=== PATIENT | female | born 1985 | race Caucasian/White ===

== ENCOUNTER 2017-09-15 00:30 | Emergency (ER) | payer SELFPAY ==
[~2017-09-15] VITALS: Ht 162.6 cm; Wt 74.0 kg
[2017-09-15 00:35] VITALS: BP 118/76
--- NOTE | 2017-09-15 00:38 | NUR ---
URINE COLLECTED. PT RETURNED TO LOBBY
--- NOTE | 2017-09-15 00:50 | NUR ---
PT TAKEN TO BED 5
--- NOTE | 2017-09-15 01:03 | NUR ---
Dr. العراقي evaluating patient at bedside.
--- NOTE | 2017-09-15 01:10 | NUR ---
31Y/F PT C/O CONSTIPATION X4 DAYS, W/ SUPRA PUBIC TENDERNESS, AND NAUSEA AND VOMITING X1 DAY. ABD IS ROUND, SOFT, TENDER TO LOWER QUADRANTS/SUPRAPUBIC, ACTIVE BS X4. PT IS LAYING IN BED, CALM, HOLDING STOMACH, FAMILY AT BEDSIDE. PMH GASTRITIS
[2017-09-15] MEDS ORDERED: NACL 0.9% 1,000 ML IV ONE (01:11)
[2017-09-15] MEDS ORDERED: MORPHINE SULFATE 4 MG/ML SYR IVP ONE (01:15)
[2017-09-15] MEDS ORDERED: ONDANSETRON 4 MG/2 ML VIAL IVP ONE (01:15)
[2017-09-15 01:38] LABS: BASOPHILS % (AUTO) 0.4 % (0.0-2.0); EOSINOPHILS # (AUTO) 0.1 K/uL (0-0.4); EOSINOPHILS % (AUTO) 1.6 % (0.0-4.0); HEMATOCRIT 30.6 % (36-48); HEMOGLOBIN 9.7 g/dL (12.0-16.0); LYMPHOCYTES # (AUTO) 1.8 K/uL (2.5-16.5); MEAN CORPUSCULAR HEMOGLOBIN 23 pg (27-31); MEAN CORPUSCULAR HGB CONC 32 g/dL (33-37); MEAN CORPUSCULAR VOLUME 73.8 fL (80-94); MONOCYTES # (AUTO) 0.6 K/uL (0.8-1.0); MONOCYTES % (AUTO) 8.3 % (1.7-9.3); NEUTROPHILS # (AUTO) 5.2 K/uL (1.8-7.7); NEUTROPHILS % (AUTO) 66.7 % (42.2-75.2); PLATELET COUNT (AUTO) 191 K/uL (140-450); RED BLOOD CELL COUNT(AUTO) 4.15 MIL/uL (4.20-5.40); RED CELL DISTRIBUTION WIDTH 17.1 % (11.6-13.7); WHITE BLOOD COUNT (AUTO) 7.8 K/uL (4.8-10.8)
--- NOTE | 2017-09-15 01:38 | NUR ---
PT TAKEN TO CT
--- NOTE | 2017-09-15 01:56 | NUR ---
PT RETURN FROM CT
[2017-09-15 02:06] LABS: ANION GAP 12.1 (8-16); CARBON DIOXIDE 28.1 mmol/L (21-32); CREATININE 0.8 mg/dL (0.6-1.3); POTASSIUM 3.2 mmol/L (3.5-5.1)
[2017-09-15 02:12] LABS: ALBUMIN 3.6 g/dL (3.4-5.0); TOTAL BILIRUBIN 0.2 mg/dL (0.0-1.0)
[2017-09-15 02:25] LABS: APPEARANCE,URINE CLOUDY (CLEAR); BILIRUBIN,URINE NEGATIVE (NEGATIVE); BLOOD, URINE NEGATIVE (NEGATIVE); COLOR,URINE YELLOW (YELLOW); LEUKOCYTE ESTERASE ,URINE NEGATIVE (NEGATIVE); NITRITE, URINE NEGATIVE (NEGATIVE); PH,URINE 8.5 (5.0-9.0); UGLUCOSE NEGATIVE (NEGATIVE)
--- NOTE | 2017-09-15 02:25 | NUR ---
PT RESTING COMFORTABLY IN BED, PT REPORTS 1/10 ABD PAIN, DENIES NAUSEA. REPORTS HAVING LARGE LIQUID STOOL A FEW MOMENTS AGO. ALL NEEDS MET AT THIS TIME.
[2017-09-15 03:21] VITALS: BP 98/64
--- NOTE | 2017-09-15 03:21 | NUR ---
Patient discharged with v/s stable. Written and verbal after care instructions given and explained. Patient alert, oriented and verbalized understanding of instructions. Ambulatory with steady gait. All questions addressed prior to discharge. ID band removed. Patient advised to follow up with PMD. Rx of FLAGYL 500MG, BENTYL 20MG, ZOFRAN ODT 4MG given. Patient educated on indication of medication including possible reaction and side effects. Opportunity to ask questions provided and answered.
== END 2017-09-15 03:21 | disposition home or self-care (01) ==
LOC: MED 00:30
DX: R11.10 Vomiting, unspecified (principal); R19.7 Diarrhea, unspecified; R10.9 Unspecified abdominal pain
CPT/HCPCS: 36415; 74176; 80053; 81003; 81025; 83690; 85025; 96361; 96374; 96375; 99285; J2270; J2405

== ENCOUNTER 2018-06-29 20:05 | Emergency (ER) | payer SELFPAY ==
[~2018-06-29] VITALS: Ht 160 cm; Wt 74.8 kg
[2018-06-29 20:21] VITALS: BP 140/90
--- NOTE | 2018-06-29 20:24 | NUR ---
TO LOBBY A/W BED, AMB, NASAL SWAB DONE AND SENT TO LAB
--- NOTE | 2018-06-29 21:51 | NUR ---
32/F PRESENTS TO ED WITH FAMILY, C/O NONPRODUCTIVE COUGH, CONGESTION, X3-4 DAYS. REPORTS BODYACHES, INCLUDING IN BACK, LEGS, HEADACHE, AND PLEURITIC CHEST PAIN. REPORTS VOMITING X4 TODAY. DENIES FEVER. AOX4, GCS 15, RR EVEN AND UNLABORED. DENIES MED HX OR RX.
[2018-06-29 22:43] VITALS: BP 116/77
--- NOTE | 2018-06-29 22:43 | NUR ---
Patient discharged with v/s stable. Written and verbal after care instructions given and explained. Patient alert, oriented and verbalized understanding of instructions. Ambulatory with steady gait. All questions addressed prior to discharge. ID band removed. Patient advised to follow up with PMD. Rx of MOTRIN, PROMETHAZINE/DEXTROMETHORPHAN given. Patient educated on indication of medication including possible reaction and side effects. Opportunity to ask questions provided and answered.
== END 2018-06-29 22:43 | disposition home or self-care (01) ==
LOC: MED 20:05
DX: J06.9 Acute upper respiratory infection, unspecified (principal)
CPT/HCPCS: 71045; 87804; 99284

== ENCOUNTER 2023-07-27 16:01 | Emergency (ER) | payer OTHER ==
[~2023-07-27] VITALS: Ht 157.5 cm; Wt 73.5 kg
[2023-07-27 16:21] VITALS: BP 124/77; PULSE 71; RESP 18; TEMP 98.7; O2SAT 99
[2023-07-27 18:42] LABS: BASOPHILS % (AUTO) 0.5 % (0.0-2.0); EOSINOPHILS # (AUTO) 0.1 K/uL (0-0.4); EOSINOPHILS % (AUTO) 2.2 % (0.0-4.0); HEMATOCRIT 32.6 % (36-48); HEMOGLOBIN 10.9 g/dL (12.0-16.0); LYMPHOCYTES # (AUTO) 2.6 K/uL (2.5-16.5); LYMPHOCYTES % (AUTO) 41.6 % (20.5-51.1); MEAN CORPUSCULAR HEMOGLOBIN 27 pg (27-31); MEAN CORPUSCULAR HGB CONC 33 g/dL (33-37); MONOCYTES # (AUTO) 0.5 K/uL (0.8-1.0); MONOCYTES % (AUTO) 7.8 % (1.7-9.3); NEUTROPHILS # (AUTO) 2.9 K/uL (1.8-7.7); NEUTROPHILS % (AUTO) 47.9 % (42.2-75.2); PLATELET COUNT (AUTO) 218 K/uL (140-450); RED BLOOD CELL COUNT(AUTO) 4.02 MIL/uL (4.20-5.40); RED CELL DISTRIBUTION WIDTH 14.4 % (11.6-13.7); WHITE BLOOD COUNT (AUTO) 6.2 K/uL (4.8-10.8)
[2023-07-27 18:58] LABS: ANION GAP 13.8 (8-16); CALCIUM 8.8 mg/dL (8.5-10.1); CARBON DIOXIDE 27.1 mmol/L (21-32); CREATININE 0.6 mg/dL (0.6-1.3); POTASSIUM 3.9 mmol/L (3.5-5.1)
[2023-07-27 19:01] LABS: INR 0.91 (0.8-1.2); PARTIAL THROMBOPLASTIN TIME 24.7 secs (22-35.6); PROTHROMBIN TIME 9.6 secs (10.8-13.4)
[2023-07-27 20:59] VITALS: BP 120/74; PULSE 75; RESP 18; TEMP 98.2
[2023-07-27 21:01] VITALS: O2SAT 99
== END 2023-07-27 21:09 | disposition home or self-care (01) ==
LOC: MED 16:01
DX: R20.0 Anesthesia of skin (principal); Z79.899 Other long term (current) drug therapy
CPT/HCPCS: 36415; 70450; 80048; 81025; 84703; 85025; 85610; 85730; 99291; J7030; Q9967